=== PATIENT | male | born 1940 | race Caucasian/White ===

== ENCOUNTER → 2018-06-06 | Outpatient (CLI) | payer MEDICARE ==
[~2018-06-06] MED LIST: B 12 IM; LEVOTHYROXINE 0.1 MG PO; PREDNISONE 20 M20 M1 PO; ZPAK PO
== END ==
LOC: M.MRI 11:13
DX: N28.1 Cyst of kidney, acquired (principal); R94.5 Abnormal results of liver function studies; Z90.49 Acquired absence of other specified parts of digestive tract